=== PATIENT | female | born 1945 | race Caucasian/White ===

== ENCOUNTER 2020-11-10 05:28 | Day surgery (SDC) | payer MEDICARE, OTHER ==
[2020-11-10] MEDS ORDERED: LACTATED RINGERS 1,000 ML ONE (06:40)
[2020-11-10] MEDS ORDERED: PROPOFOL 200 MG/20 ML VIAL IV ONE (07:00)
[2020-11-10] MEDS ORDERED: LIDOCAINE 1% 10 ML VIAL INJ ONE (07:00)
[2020-11-10] MEDS ORDERED: DEXTROSE 5% 1000ML 1,000 ML IVS ONE (09:59)
[2020-11-10 11:11] VITALS: O2SAT 100
[2020-11-10 11:35] VITALS: BP 122/51; TEMP 97.6
--- NOTE | 2020-12-06 09:50 | OP ---
DATE OF PROCEDURE: 11/10/20 PREOPERATIVE DIAGNOSIS: 1. Screening colonoscopy. 2. Incontinence. POSTOPERATIVE DIAGNOSIS: 1. Normal colon. PROCEDURE: 1. Colonoscopy. SURGEON: Abhijeet Hickey MD FINDINGS: No polyps or other abnormalities. PROCEDURE: General anesthesia was induced in the lateral position. Digital rectal exam revealed reduced pelvic tone. No obvious defects in the muscle and a moderate rectocele apparent. The colonoscope was inserted without difficulty and passed to the cecum as identified by the appendiceal orifice and ileocecal valve with a few adjustments, but minimal difficulty. Upon withdrawal, the mucosal surfaces appeared normal. No polyps were seen. Small uncomplicated hemorrhoids.The patient tolerated the procedure well. She has some complaints of fecal incontinence with no known history of trauma. We will send her to pelvic floor therapy, make diet recommendations and possibly find endoanal ultrasound, 360 degree, to evaluate her sphincter, although no obvious defects were found. #[id number] [facility], [place]
== END 2020-11-10 11:40 | disposition home or self-care (01) ==
LOC: AMB 05:28
PROVIDERS: ATTEND Surgery
DX: Z12.11 Encounter for screening for malignant neoplasm of colon (principal); R15.9 Full incontinence of feces; J45.909 Unspecified asthma, uncomplicated; E11.9 Type 2 diabetes mellitus without complications; Z88.5 Allergy status to narcotic agent; Z79.4 Long term (current) use of insulin; Z79.899 Other long term (current) drug therapy
CPT/HCPCS: 00812; 36416; 82948; G0121; J3490; J7060; J7120